=== PATIENT | male | born 1960 | race Caucasian/White ===

== ENCOUNTER 2021-06-16 14:44 | Emergency (ER) | payer OTHER ==
[~2021-06-16 14:44] MED LIST: KEFLEX250 MG PO
[2021-06-16 15:49] LABS: BASOPHIL 0.3 % (0-2); EOSINOPHIL 0.4 % (0-5); HCT 45.6 % (42.0-52.0); HGB 15.2 g/dl (13.2-18.0); LYMPHOCYTE 18.8 % (15-48); MCH 29.7 pg (25.0-31.0); MCHC 33.3 g/dL (32.0-36.0); MCV 89.2 fL (78.0-100.0); MONOCYTE 8.1 % (0-12); NEUTROPHIL 72.1 % (41-80); NRBC 0; PLT 242 K/uL (150-400); RBC 5.11 M/uL (4.70-6.00); RDW 13.2 % (11.5-14.0); WBC 7.6 K/uL (4.0-10.5)
[2021-06-16 16:11] LABS: ALBUMIN 3.9 g/dL (3.4-5.0); BILIRUBIN - TOTAL 0.4 mg/dL (0.2-1.0); BUN/CREAT RATIO (CALC) 15.2 RATIO; CREATININE 0.79 mg/dL (0.67-1.17); GLOBULIN (CALCULATION) 3.4 g/dL; POTASSIUM 4.3 mmol/L (3.5-5.1); TOTAL PROTEIN 7.3 g/dL (6.4-8.2)
[2021-06-16 16:20] LABS: LACTIC ACID 0.8 mmol/L (0.4-1.9)
[2021-06-16 17:47] LABS: BILIRUBIN NEGATIVE (NEGATIVE); BLOOD NEGATIVE Ery/uL (NEGATIVE); CLARITY CLEAR (CLEAR); COLOR YELLOW (YELLOW); GLUCOSE (U) NORMAL (NORMAL); LEUKOCYTES NEGATIVE Leu/uL (NEGATIVE); NITRITE NEGATIVE (NEGATIVE); PROTEIN NEGATIVE (NEGATIVE); UROBILINOGEN 0.2 mg/dL (0.2-1.0)
[2021-06-16] MEDS ORDERED: BENTYL10 MG PO (18:03)
[2021-06-16] MEDS ORDERED: ZOFRAN4 M1 PO (18:03)
== END 2021-06-16 18:59 | disposition home or self-care (01) ==
LOC: FER 14:44
PROVIDERS: Nurse Practitioner Family
DX: R10.32 Left lower quadrant pain (principal); R11.0 Nausea; T78.40XA Allergy, unspecified, initial encounter; I10 Essential (primary) hypertension; J44.9 Chronic obstructive pulmonary disease, unspecified; Z88.2 Allergy status to sulfonamides
CPT/HCPCS: 36415; 80053; 81003; 82150; 83605; 83690; 85025; 87040; 87088; J1200; J2270; J2405; J2930; J7030; Q9967